=== PATIENT | male | born 1995 | race African-American/Black ===

== ENCOUNTER 2017-02-06 15:15 | Emergency (ER) | payer SELFPAY ==
--- NOTE | 2017-02-13 01:20 | ER ---
ADMIT: 02/06/2017 RM/LOC: ER [facility] MR#: [id number] [facility] [address] [place] [id number] DAN[facility] [address] [place] [address] Emergency Room Report SEX: M AGE: 21 : 1995 DATE: 02/06/2017 See T-sheet for complete H and P. ADDENDUM: A 21-year-old male, who is brought in by police for med clearance to go to halfway. He apparently blew 0.32 on a Breathalyzer. The arresting officers state that the patient did not fight and there is no injury that they are aware of. The patient was not complaining of any specific injuries. He does state that he has a history of asthma but has not been taking any medications for it as it has not been bothering him. The patient is not very cooperative during the exam. PAST MEDICAL HISTORY: Asthma. MEDICATIONS: Albuterol as needed. ALLERGIES: SEE NURSE'S NOTE. SOCIAL HISTORY: Admits to recent heavy alcohol use and marijuana use. PHYSICAL EXAMINATION: See T-sheet for physical exam. His initial blood pressure read at 230/205 but a repeat couple of minutes later, it was 148/101 and that is when he was moving his arm still. He does not have a history of hypertension. MEDICAL DECISION MAKING: The patient does not appear to be in any distress whatsoever, but does appear intoxicated. I do not see a reason at this point he is not cleared to go to halfway as he is breathing comfortably. DIAGNOSES: 1. Alcohol intoxication. 2. Hypertension. Volodymyr Stevens MD/ hossein JOB #: [id number] CC: James Cummings MD, Attending Physician Gabe Bell MD, Family Physician
== END 2017-02-06 15:33 | disposition home or self-care (01) ==
LOC: ER 15:15 → EDBD 15:15 → ER 15:33
DX: F10.129 Alcohol abuse with intoxication, unspecified (principal); I10 Essential (primary) hypertension; J45.909 Unspecified asthma, uncomplicated; F17.210 Nicotine dependence, cigarettes, uncomplicated; Z79.899 Other long term (current) drug therapy